=== PATIENT | male | born 1965 | race Caucasian/White ===

== ENCOUNTER 2019-05-12 16:08 | Emergency (ER) | payer OTHER, SELFPAY ==
[2019-05-12 16:22] VITALS: BP 151/90; PULSE 73; RESP 18; TEMP 36.7; O2SAT 99
--- NOTE | 2019-05-12 16:32 | ECG_ITS ---
Measurements Intervals [place] Rate: 70 P: 47 OR: 186 QRS: 30 QRSD: 102 T: 47 QT: 372 QTc: 402 Interpretive Statements SINUS RHYTHM NORMAL ECG Electronically Signed On 05-13-2019 7:58:33 CORRECTIONS COUNSELOR by Owen Delgadlilo D.O.
--- NOTE | 2019-05-12 16:43 | ED.BACK ---
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 He is not under a doctor's care and last saw last 2 years ago. 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 About a month ago he had pain above his right kidney that seem to come and go and eventually went away about a week ago, now has this pain this developed when his back that can be elicited with certain positions but in general is nontender. Patient does not smoke drinks socially takes no recreational drugs, he denies diaphoresis shortness of breath awakening during the night due to pain. He has had no chest pain nor pain radiating to his jaw. He states he is here because his significant other wanted him checked out after his brother, age 56, had drop from a heart attack a few years ago and his mother at the age of 75 also of a heart attack Related Data Allergies Allergy/AdvReac Type Severity Reaction Status Date / Time No Known Allergies Allergy Verified 05/12/19 16:26 Review of Systems Review of Systems: Narrative: CONSTITUTIONAL: Denies fever, chills, sweats. EYES: Denies visual changes, redness, discharge. ENT: Denies rhinorrhea, congestion, sore throat, otalgia. CARDIOVASCULAR: Denies chest pain, palpitations, edema. RESPIRATORY: Denies dyspnea, wheezing, cough GASTROINTESTINAL: Denies abdominal pain, nausea, vomiting, diarrhea. GENITOURINARY: Denies dysuria, hematuria, abnormal discharge SKIN: Denies rash or itching. MUSCULOSKELETAL: acute mid back pain, joint pain, or myalgia. NEUROLOGIC: Denies numbness, or focal weakness. PSYCHIATRIC: Denies anxiety or depression. [facility] Family History Family History Sibling Heart disease Mother Heart disease Social History Social History Smoking status: Never smoker Alcohol intake: current Comments At time of signature, I agree with nursing past medical, surgical, social and family history. There is no relevant family history pertinent to the presenting complaint. Exam Narrative: Exam Narrative: GENERAL: This is a well-nourished, well-developed patient, in no apparent distress. Appears a little worried HEAD: normocephalic, atraumatic. EYES: Sclera clear/white. Vision is grossly intact. EARS: External ears normal, auditory canals clear and without drainage, TMs normal without perforation. Hearing grossly intact. NOSE: External nose normal with no obvious nasal discharge, nares without redness, no rhinorrhea. THROAT: Mucous membranes moist, posterior pharynx clear. NECK: Neck supple, non-tender without lymphadenopathy, masses or thyromegaly. CARDIOVASCULAR: Regular rate and rhythm without murmurs, gallops, or rubs. RESPIRATORY: Clear to auscultation. Breath sounds equal bilaterally. No wheezes, rales, or rhonchi. Denies shortness of breath GASTROINTESTINAL: Abdomen soft, non-tender, has pannus SKIN: warm, intact with no suspicious lesions or rash, good texture and turgor. NEURO: awake, alert, and oriented to person, place and time. There were no obvious focal neurologic abnormalities. Steady gait EXTREMITIES: Normal range of motion. No edema. No calf tenderness. Negative Homans sign bilaterally. BACK: Nontender without deformity ; able to elicit bACK: Tenderness in the paraspinous muscles in the lumbar area. No tenderness over the spinous processes of the lumbar vertebrae. LEGS: Normal strength including dorsi-flexion and plantar flexion of the feet. Negative bilateral straight leg raising, normal and symmetrical knee and ankle reflexes. Wit
[2019-05-12] MEDS: KETOROLAC (*BKC) 60 MG/2 ML VIAL IM (16:55)
== END 2019-05-12 17:21 | disposition home or self-care (01) ==
PROVIDERS: Emergency Provider Nurse Practitioner
DX: M54.6 Pain in thoracic spine (principal)
CPT/HCPCS: 93005; 96372; 99213; G0463; J1885

== ENCOUNTER 2022-06-01 09:03 | Emergency (ER) | payer OTHER, SELFPAY ==
[2022-06-01 09:29] VITALS: BP 155/87; PULSE 60; RESP 16; TEMP 36.2; O2SAT 95
[2022-06-01] MEDS: TETANUS,DIPHTHERIA,AC PERTUSSIS ADULT (0.5 ML) BOOSTRIX IM (09:47)
--- NOTE | 2022-06-01 09:51 | ED.WOUNDLAC ---
HPI - Wound/Laceration General Chief Complaint: Wound/Laceration Stated Complaint: laceration rt hand Time Seen by Provider: 06/01/22 09:51 Source: patient Mode of arrival: ambulatory Limitations: no limitations History of Present Illness HPI narrative: 57-year-old male presented for complaint of laceration to the right thumb. Injury occurred today, stating he was using a herb counselor without the guard, and the piece of meat was too large. Patient rinsed the site with water after the injury occurred but bleeding persisted. He denies numbness, tingling, weakness or decreased range of motion to the finger. Unsure of last tetanus. Related Data Home Medications Medication Instructions Recorded Confirmed lisinopril 10 mg tablet 10 mg PO DAILY 06/01/22 06/01/22 Allergies Allergy/AdvReac Type Severity Reaction Status Date / Time No Known Allergies Allergy Verified 06/01/22 09:16 Review of Systems Review of Systems: CONSTITUTIONAL: Denies body aches, fever, chills, or sweats. CARDIOVASCULAR: Denies chest pain, palpitations, or edema. RESPIRATORY: Denies cough or dyspnea. GASTROINTESTINAL: Denies abdominal pain, nausea, vomiting, or diarrhea. SKIN: per HPI MUSCULOSKELETAL: Denies back pain, joint pain, or myalgia. NEUROLOGIC: Denies headache, numbness, tingling, or weakness. [facility] Past Medical History Medical History (Updated 06/01/22 @ 16:02 by Brianna Correa APRN) No pertinent past medical history Family History Family History Sibling Heart disease Mother Heart disease Social History Social History Smoking status: Never smoker Alcohol intake: current Comments At time of signature, I have reviewed and agree with nursing past medical, surgical, social and family history unless otherwise noted. Please see nursing chart for further information. There is no relevant family history pertinent to the presenting complaint Exam Narrative: GENERAL: Well-appearing HEAD: Normocephalic, atraumatic. EYES: conjunctivae clear, and EOMI. ENT: Mucous membranes moist. Oropharynx without edema, erythema or lesions. NECK: Supple. No lymphadenopathy CHEST: Clear to auscultation. HEART: Regular rate and rhythm. SKIN: Warm, dry. [id number] skin avulsion to ulnar aspect of thumb, with nail involvement approx 0.5cm, no tendons visualized. Unable to approximate edges. Active bleeding. NEURO: Alert and oriented x3. Course Course Emergency Course: Patient is aware of diagnosis, understands and agrees to treatment plan. Anticipatory guidance given. Patient agrees to follow-up as directed and is aware of reasons to seek care at the emergency department. Portions of this record may have been created with voice recognition software Level of Care: Express Care Visit Vital Signs Vital signs: Vital Signs Temperature 97.1 F L 06/01/22 09:29 Pulse Rate 60 06/01/22 09:29 Respiratory Rate 16 06/01/22 09:29 Blood Pressure 155/87 H 06/01/22 09:29 Pulse Oximetry 95 06/01/22 09:29 Oxygen Delivery Room Air 06/01/22 09:29 Temperature 97.1 F L 06/01/22 09:29 Pulse Rate 60 06/01/22 09:29 Respiratory Rate 16 06/01/22 09:29 Blood Pressure 155/87 H 06/01/22 09:29 Pulse Oximetry 95 06/01/22 09:29 Oxygen Delivery Room Air 06/01/22 09:29 Reviewed MDM - Wound/Laceration MDM Narrative Medical decision making narrative: Surgicel applied to the bleeding skin avulsion site, applied firm pressure. After hemostasis, the thumb was dressed with ARLETH and nonadhesive dressing and coban. Tetanus updated. Rx abx. He is advised to go to the scheduled appointment with Dr Etienne on Wednesday06/05/22. Advised supportive measures and signs/symptoms to go to the ER. Pt is appropriate for outpt treatment and f/u. Differential Diagnosis Differential diagnosis: Likely laceration, abrasion and
== END 2022-06-01 11:20 | disposition home or self-care (01) ==
PROVIDERS: Emergency Provider Nurse Practitioner Family; PCP Family Medicine
DX: S61.101A Unspecified open wound of right thumb with damage to nail, initial encounter (principal); W29.0XXA Contact with powered kitchen appliance, initial encounter; Z23 Encounter for immunization
CPT/HCPCS: 90471; 90715; 99213; G0463